=== PATIENT | female | born 1970 | race Hispanic/Latino ===

== ENCOUNTER 2023-10-16 16:26 | Emergency (ER) | payer SELFPAY ==
--- NOTE | 2023-10-16 17:13 | ER ---
Nurse's Notes [facility] Name: Zoie Zamarripa Age: 53 yrs Sex: Female : 1970 Arrival Date: 10/16/2023 Time: 16:26 Bed IW10 Private MD: Diagnosis: Essential (primary) hypertension Presentation: 10/15 16:43 Chief complaint: Patient states: Chest pain for about a week along with high blood nj pressure, states she was dx with HTN a long time ago, used to take medicine and stop taking it. Coronavirus screen: Vaccine status: Patient reports receiving the 2nd dose of the covid vaccine. Ebola Screen: Patient denies travel to an Ebola-affected area in the 21 days before illness onset. Initial Sepsis Screen: Does the patient meet any 2 criteria? No. Patient's initial sepsis screen is negative. Does the patient have a suspected source of infection? No. Patient's initial sepsis screen is negative. Risk Assessment: Do you want to hurt yourself or someone else? Patient reports no desire to harm self or others. Onset of symptoms was October 2023. 16:43 Method Of Arrival: Ambulatory [facility] 16:43 Acuity: PARKER 3 nj1 Triage Assessment: 16:45 General: Appears in no apparent distress. comfortable, Behavior is calm, cooperative, nj1 appropriate for age. Pain: Complains of pain in chest Pain currently is 5 out of 10 on a pain scale. Cardiovascular: Chest pain is described as mild, episodes are intermittent. Historical: - Allergies: 16:44 Hydrocodone-Acetaminophen; nj1 - PMHx: 16:44 Hypertensive disorder; nj1 - PSHx: 16:44 None; nj1 - Immunization history:: Client reports receiving the 2nd dose of the Covid vaccine. - Infectious Disease History:: Denies. - Social history:: Smoking status: Patient reports the use of cigarette tobacco products, smokes one-half pack cigarettes per day. - Family history:: not pertinent. - Hospitalizations: : No recent hospitalization is reported. Assessment: 17:01 Reassessment: Cancel all orders per Dr Valentine, pt to be sent home with prescription. [facility] Vital Signs: 16:43 BP 159 / 97; Pulse 76; Resp 17; Temp 98.7; Pulse Ox 99% on R/A; Weight 99.79 kg; Height nj1 5 ft. 3 in. ; Pain 5/10; 16:43 Body Mass Index 38.97 (99.79 kg, 160.02 cm) nj1 16:43 Pain Scale: Adult [facility] ED Course: 16:29 Patient arrived in ED. im 16:44 Triage completed. nj1 16:45 Arm band placed on right wrist. nj1 16:48 Mike Valentine MD is Attending Physician. rn 17:08 Provided Education on: discharge instructions. nj1 17:08 Patient did not have IV access during this emergency room visit. nj1 17:08 No provider procedures requiring assistance completed. nj1 Administered Medications: No medications were administered Medication: 17:08 VIS not applicable for this client. [facility] Outcome: 17:08 Discharged to home ambulatory, nj1 17:08 Condition: stable 17:08 Discharge instructions given to patient, Instructed on discharge instructions, follow up and referral plans. medication usage, Demonstrated understanding of instructions, follow-up care, medications, Prescriptions given X 1, 17:09 Patient left the ED. [facility] 17:12 Discharge ordered by . rn Signatures: Mike Valentine MD MD rn Jaco, Norma, RN RN [facility] Darlin Rushing Corrections: (The following items were deleted from the chart) 17:21 17:21 Patient [place] the ED. [place] [id number]
--- NOTE | 2023-10-16 17:13 | EDPHYS ---
Physician Documentation [facility] Name: Zoie Zamarripa Age: 53 yrs Sex: Female : 1970 Arrival Date: 10/16/2023 Time: 16:26 Bed IW10 Private MD: ED Physician Mike Valentine HPI: 10/15 17:03 This 53 yrs old Female presents to ER via Ambulatory with complaints of high rn blood pressure. 17:06 The patient has elevated blood pressure and discovered this at home. Onset: The rn symptoms/episode began/occurred at an unknown time. Modifying factors: The symptoms are aggravated by discontinuation of meds. Severity of symptoms: At its worst the blood pressure was mild, in the emergency department the blood pressure is unchanged. The patient has experienced similar episodes in the past. Patient reports out of blood pressure medications for some time. Patient reports mild headache and malaise. No chest pain or shortness of breath. No focal neurological deficit. Patient states used to feel like this all the time when her blood pressure was up and here for refill of blood pressure medication. No fever. No cough. No trauma. Denies abdominal pain or back pain.. Historical: - Allergies: 16:44 Hydrocodone-Acetaminophen; nj1 - PMHx: 16:44 Hypertensive disorder; nj1 - PSHx: 16:44 None; nj1 - Immunization history:: Client reports receiving the 2nd dose of the Covid vaccine. - Infectious Disease History:: Denies. - Social history:: Smoking status: Patient reports the use of cigarette tobacco products, smokes one-half pack cigarettes per day. - Family history:: not pertinent. - Hospitalizations: : No recent hospitalization is reported. ROS: 17:06 Constitutional: Negative for fever, chills, and weight loss, Eyes: Negative for injury, rn pain, redness, and discharge, Neck: Negative for injury, pain, and swelling, Cardiovascular: Negative for chest pain, palpitations, and edema, Respiratory: Negative for shortness of breath, cough, wheezing, and pleuritic chest pain, Abdomen/GI: Negative for abdominal pain, nausea, vomiting, diarrhea, and constipation, Back: Negative for injury and pain, MS/Extremity: Negative for injury and deformity, Skin: Negative for injury, rash, and discoloration, Neuro: Positive for mild headache, negative for weakness or numbness. Exam: 17:06 Constitutional: This is a well developed, well nourished patient who is awake, alert, rn and in no acute distress. Cardiovascular: Regular rate and rhythm. No pulse deficits. Respiratory: No increased work of breathing, no retractions or nasal flaring. Abdomen/GI: Soft, non-tender MS/ Extremity: Pulses equal, no cyanosis. Neuro: Awake and alert, GCS 15, oriented to person, place, time, and situation. Cranial nerves II-XII grossly intact. Motor strength 5/5 in all extremities. Sensory grossly intact. Cerebellar exam normal. Normal gait. Vital Signs: 16:43 BP 159 / 97; Pulse 76; Resp 17; Temp 98.7; Pulse Ox 99% on R/A; Weight 99.79 kg; Height nj1 5 ft. 3 in. ; Pain 5/10; 16:43 Body Mass Index 38.97 (99.79 kg, 160.02 cm) nj1 16:43 Pain Scale: Adult nj1 MDM: 16:48 Patient medically screened. rn 17:06 Differential diagnosis: Malignant HTN, Hypertension, asymptomatic hypertension. Data rn reviewed: vital signs, nurses notes, and as a result, I will discharge patient. Counseling: I had a detailed discussion with the patient and/or guardian regarding the historical points, exam findings, and any diagnostic results supporting the discharge/admit diagnosis, the need for outpatient follow up, to return to the emergency department if symptoms worsen or persist or if there are any questions or concerns that arise at home. ED course: Had long conversation with patient, told her safest thing to do would be to get some test to rule out any sort of end organ damage. Patient states seems waiting room is very busy and she feels like she just needs blood pressure medication, has felt this multiple times in the past and declines workup at this time. Understands risks of going home without workup. She states she prefers a refill of her lisinopril and will make an appointment with her PCP. Return precautions given and understood.. 10/15 16:51 Order name: Cardiac monitoring rn 10/15 16:51 Order name: EKG - Nurse/Tech rn 10/15 16:51 Order name: IV Saline Lock rn 10/15 16:51 Order name: Labs collected and sent rn 10/15 16:51 Order name: O2 Per Protocol rn 10/15 16:51 Order name: O2 Sat Monitoring rn Administered Medications: No medications were administered Disposition Summary: 10/16/23 17:12 Discharge Ordered Notes: Location: Home rn Problem: new rn Symptoms: have improved rn Condition: Stable rn Diagnosis - Essential (primary) hypertension rn Followup: rn - With: Private Physician - When: As needed - Reason: Recheck today's complaints, Re-evaluation by your physician Discharge Instructions: - Discharge Summary Sheet rn - Hypertension, Adult rn Forms: - Medication Reconciliation Form rn - Thank You Letter rn - Antibiotic rn advice - Prescription Opioid Use rn - Patient Portal Instructions rn - Leadership Thank You Letter rn Prescriptions: - Lisinopril 10 mg Oral tablet - take 1 tablet ORAL route once daily; 90 tablet; Refills: 0, Product Selection rn Permitted Signatures: Dispatcher [employer] EDMS Mike Valentine MD MD rn Jaco, Norma, RN RN nj1 Corrections: (The following items were deleted from the chart) 16:52 16:52 Chest Single View+RAD.RAD.BRZ ordered. EDMS EDMS 17:04 16:52 BASIC METABOLIC PANEL+C.LAB.BRZ ordered. EDMS EDMS 17:04 16:52 CBC+H.LAB.BRZ ordered. EDMS EDMS 17:04 16:52 HEPATIC FUNCTION+C.LAB.BRZ ordered. EDMS EDMS 17:04 16:52 PROBNP+C.LAB.BRZ ordered. EDMS EDMS 17:04 16:52 Troponin High Sensitivity+C.LAB.BRZ ordered. EDMS EDMS 17:07 17:06 Constitutional: Negative for fever, chills, and weight loss, Cardiovascular: rn Negative for chest pain, palpitations, and edema, Respiratory: Negative for shortness of breath, cough, wheezing, and pleuritic chest pain, Abdomen/GI: Negative for abdominal pain, nausea, vomiting, diarrhea, and constipation, Back: Negative for injury and pain, MS/Extremity: Negative for injury and deformity, Skin: Negative for injury, rash, and discoloration, Neuro: Positive for mild headache, negative for weakness or numbness. rn
[2023-10-16 19:46] VITALS: BP 159/97; TEMP 98.7; O2SAT 99
== END 2023-10-16 17:21 | disposition home or self-care (01) ==
LOC: ER 16:26
DX: I10 Essential (primary) hypertension (principal); F17.210 Nicotine dependence, cigarettes, uncomplicated; Z88.5 Allergy status to narcotic agent
CPT/HCPCS: 99283

== ENCOUNTER 2024-04-09 12:46 | Emergency (ER) | payer SELFPAY ==
--- NOTE | 2024-04-09 13:12 | EDPHYS ---
Physician Documentation [facility] Name: Zoie Zamarripa Age: 54 yrs Sex: Female : 1970 Arrival Date: 04/09/2024 Time: 12:46 Bed 18 Private MD: ED Physician Carl Kaba HPI: 04/09 13:08 This 54 yrs old Female presents to ER via Ambulatory with complaints of sp3 Toothache. 13:08 Patient with right-sided facial pain in the mandible consistent with prior toothache. sp3 Patient has an appointment with dentistry on Monday but states she cannot wait currently. She denies fever, throat swelling, shortness of breath, chest pain, rash or any other signs or symptoms on ROS at this time.. Historical: - Allergies: 13:03 Hydrocodone; hb - Home Meds: 13:03 None [Active]; hb - PMHx: 13:03 Hypertensive disorder; hb - PSHx: 13:03 section; hb - Immunization history:: Adult Immunizations up to date. - Infectious Disease History:: Denies. - Social history:: Smoking status: Patient denies any tobacco usage or history of. ROS: 13:09 Constitutional: Negative for fever, chills, and weight loss, Eyes: Negative for injury, sp3 pain, redness, and discharge, Neck: Negative for injury, pain, and swelling, Cardiovascular: Negative for chest pain, palpitations, and edema, Respiratory: Negative for shortness of breath, cough, wheezing, and pleuritic chest pain, Abdomen/GI: Negative for abdominal pain, nausea, vomiting, diarrhea, and constipation, Back: Negative for injury and pain, Neuro: Negative for headache, weakness, numbness, tingling, and seizure, Psych: Negative for depression, anxiety, suicide ideation, homicidal ideation, and hallucinations, Allergy/Immunology: Negative for hives, rash, and allergies, 13:09 All other systems are negative, Exam: 13:09 Constitutional: This is a well developed, well nourished patient who is awake, alert, sp3 and in no acute distress. Head/Face: Normocephalic, atraumatic. Neck: Trachea midline, no thyromegaly or masses palpated, and no cervical lymphadenopathy. Supple, full range of motion without nuchal rigidity, or vertebral point tenderness. No Meningismus. Chest/axilla: Normal chest wall appearance and motion. Nontender with no deformity. No lesions are appreciated. Cardiovascular: Regular rate and rhythm with a normal S1 and S2. No gallops, murmurs, or rubs. Normal PMI, no JVD. No pulse deficits. Respiratory: Lungs have equal breath sounds bilaterally, clear to auscultation and percussion. No rales, rhonchi or wheezes noted. No increased work of breathing, no retractions or nasal flaring. 13:09 ENT: Poor dentition on entire right side of mouth with gingival swelling. Probable infection present.. Vital Signs: 12:55 BP 156 / 86; Pulse 88; Resp 16; Temp 98.2(O); Pulse Ox 98% on R/A; Weight 99.79 kg; hb Height 5 ft. 3 in. ; Pain 10/10; 12:55 Body Mass Index 38.97 (99.79 kg, 160.02 cm) hb 12:55 Pain Scale: Adult hb MDM: 12:53 Patient medically screened. sp3 13:10 Data reviewed: vital signs, nurses notes. ED course: 54-year-old female with probable sp3 dental infection. Will place on antibiotic and NSAID and administer 1 dose Sayre in the ED. Clinically ruled out sepsis, shock or any other critical process.. Administered Medications: 13:32 Drug: HYDROcodone-acetaminophen PO 5 mg-325 mg 2 tabs PO once Route: PO; db 13:50 Follow up: Response: No adverse reaction db Disposition Summary: 04/09/24 13:11 Discharge Ordered Notes: Location: Home sp3 Condition: Stable sp3 Diagnosis - Dental infection sp3 Followup: sp3 - With: Private Physician - When: Upon discharge from the Emergency Department - Reason: Continuance of care Discharge Instructions: - Discharge Summary Sheet sp3 - Dental Pain sp3 Forms: - Medication Reconciliation Form sp3 - Antibiotic Education sp3 - Prescription Opioid Use sp3 - Patient Portal Instructions sp3 - Leadership Thank You Letter sp3 Prescriptions: - Augmentin 875-125 mg Oral Tablet - take 1 tablet ORAL route every 12 hours for 10 days; 20 tablet; Refills: 0, sp3 Product Selection Permitted - Diclofenac Sodium 75 mg Oral Tablet Sustained Release - take 1 tablet ORAL route 2 times per day; 30 tablet; Refills: 0, Product sp3 Selection Permitted Signatures: Dispatcher [employer] EDMS Ashlie Esposito, RN RN hb Carl Kaba MD MD sp3 Roberta Gore, RN RN db Corrections: (The following items were deleted from the chart) 12:54 12:54 Chest Single View+RAD.RAD.BRZ ordered. EDMS EDMS 13:00 12:54 IV Saline Lock ordered. sp3 hb 13:00 12:54 Labs collected and sent ordered. sp3 hb 13: 12:54 Cardiac monitoring ordered. sp3 hb 13:01 12:54 EKG - Nurse/Tech ordered. sp3 hb 13:01 12:54 Oxygen Per Protocol ordered. sp3 hb 13:01 12:54 O2 Sat Monitoring ordered. sp3 hb 13:03 13:03 Allergies: Hydrocodone-Acetaminophen; hb hb 13:04 12:54 PROTIME (+INR)+COAG.LAB.BRZ ordered. EDMS EDMS 13:05 12:54 BASIC METABOLIC PANEL+C.LAB.BRZ ordered. EDMS EDMS 13:05 12:54 CBC+H.LAB.BRZ ordered. EDMS EDMS 13:05 12:54 HEPATIC FUNCTION+C.LAB.BRZ ordered. EDMS EDMS 13:05 12:54 MAGNESIUM+C.LAB.BRZ ordered. EDMS EDMS 13:05 12:54 PROBNP+C.LAB.BRZ ordered. EDMS EDMS 13:05 12:54 Troponin High Sensitivity+C.LAB.BRZ ordered. EDMS EDMS 13:05 12:54 LACTATE+C.LAB.BRZ ordered. EDMS EDMS
--- NOTE | 2024-04-09 13:12 | ER ---
Nurse's Notes [facility] Name: Zoie Zamarripa Age: 54 yrs Sex: Female : 1970 Arrival Date: 04/09/2024 Time: 12:46 Bed 18 Private MD: Diagnosis: Dental infection Presentation: 04/09 12:55 Chief complaint: Right lower molar pain x 2 weeks. Coronavirus screen: At this time, hb the client does not indicate any symptoms associated with coronavirus-19. Ebola Screen: No symptoms or risks identified at this time. Initial Sepsis Screen: Does the patient meet any 2 criteria? No. Patient's initial sepsis screen is negative. Does the patient have a suspected source of infection? No. Patient's initial sepsis screen is negative. Risk Assessment: Do you want to hurt yourself or someone else? Patient reports no desire to harm self or others. Onset of symptoms was March 26, 2024. 12:55 Method Of Arrival: Ambulatory hb 12:55 Acuity: PARKER 4 hb Triage Assessment: 14:30 General: Appears. db Historical: - Allergies: 13:03 Hydrocodone; hb - Home Meds: 13:03 None [Active]; hb - PMHx: 13:03 Hypertensive disorder; hb - PSHx: 13:03 section; hb - Immunization history:: Adult Immunizations up to date. - Infectious Disease History:: Denies. - Social history:: Smoking status: Patient denies any tobacco usage or history of. Screenin:45 [facility] ED Fall Risk Assessment (Adult) History of falling in the last 3 months, db including since admission No falls in past 3 months (0 pts) Confusion or Disorientation No (0 pts) Intoxicated or Sedated No (0 pts) Impaired Gait No (0 pts) Mobility Assist Device Used No (0 pt) Altered Elimination No (0 pt) Score/Fall Risk Level 0 - 2 = Low Risk Oriented to surroundings, Maintained a safe environment. Abuse screen: Denies threats or abuse. Nutritional screening: No deficits noted. On. Nutritional screening: No deficits noted. Tuberculosis screening: No symptoms or risk factors identified. Assessment: 13:15 Reassessment: Patient appears in no apparent distress at this time. Patient and/or db family updated on plan of care and expected duration. Pain level reassessed. Patient is alert, oriented x 3, equal unlabored respirations, skin warm/dry/pink. General: Appears in no apparent distress. comfortable, Behavior is calm, cooperative. Pain: Complains of pain in mouth. Neuro: Level of Consciousness is awake, alert, obeys commands, Oriented to person, place, time, situation. EENT: DENTAL PAIN. Vital Signs: 12:55 BP 156 / 86; Pulse 88; Resp 16; Temp 98.2(O); Pulse Ox 98% on R/A; Weight 99.79 kg; hb Height 5 ft. 3 in. ; Pain 10/10; 12:55 Body Mass Index 38.97 (99.79 kg, 160.02 cm) hb 12:55 Pain Scale: Adult hb ED Course: 12:49 Patient arrived in ED. mg5 12:50 Carl Kaba MD is Attending Physician. sp3 13:03 Triage completed. hb 13:03 Arm band placed on. hb 13:22 Roberta Gore, RN is Primary Nurse. db 13:45 Patient has correct armband on for positive identification. Bed in low position. Call db light in reach. Side rails up X 1. Provided Education on: DISCHARGE AND FOLLOWUP. Pulse ox on. NIBP on. Pillow given. 13:45 No provider procedures requiring assistance completed. Patient did not have IV access db during this emergency room visit. Administered Medications: 13:32 Drug: HYDROcodone-acetaminophen PO 5 mg-325 mg 2 tabs PO once Route: PO; db 13:50 Follow up: Response: No adverse reaction db Medication: 13:15 VIS not applicable for this client. db Outcome: 13:11 Discharge ordered by . sp3 13:45 Discharged to home ambulatory, db 13:45 Condition: stable 13:45 Discharge instructions given to patient, Instructed on discharge instructions, follow up and referral plans. Prescriptions given X 2, 13:51 Patient left the ED. db Signatures: Ashlie Esposito RN RN Carl Kaba MD MD sp3 Roberta Gore RN RN Apurva Aldrich mg5 Corrections: (The following items were deleted from the chart) 13:03 13:03 Allergies: Hydrocodone-Acetaminophen; hb
[2024-04-09] MEDS ORDERED: HYDROCODONE/APAP 5/325 MG TAB ONE ×2 (13:41→13:45)
[2024-04-09 13:55] VITALS: BP 156/86; TEMP 98.2; O2SAT 98
== END 2024-04-09 13:51 | disposition home or self-care (01) ==
LOC: ER 12:46
DX: K04.7 Periapical abscess without sinus (principal)
CPT/HCPCS: 99283

== ENCOUNTER 2024-07-04 12:58 | Emergency (ER) | payer OTHER ==
[2024-07-04 14:15] LABS: SARS-CoV-2 Antigen CONTROL BLUE LINE VIS/BG OK; SARS-CoV-2 Antigen Rapid Res Negative (Negative)
--- NOTE | 2024-07-04 14:25 | RAD REPORT ---
EXAMINATION: ONE VIEW CHEST XR CLINICAL INDICATION: COUGH TECHNIQUE: Frontal chest projection is submitted. Examination is limited by patient positioning and t echnique. COMPARISON: 06/19/2015 FINDINGS: The lungs are well inflated and clear. The heart is normal in size. No displaced fractures identified . IMPRESSION: No acute intrathoracic abnormalities.
--- NOTE | 2024-07-04 14:40 | ER ---
Nurse's Notes [facility] Name: Zoie Zamarripa Age: 54 yrs Sex: Female : 1970 Arrival Date: 07/04/2024 Time: 12:58 Bed 11 Private MD: Diagnosis: Influenza due to identified novel influenza A virus Presentation: 07/04 13:03 Chief complaint: Patient states: has difficulty breathing, headaches cough, sneezing, iw watery eyes since Monday. Coronavirus screen: Client presents with at least one sign or symptom that may indicate coronavirus-19. Ebola Screen: No symptoms or risks identified at this time. Initial Sepsis Screen: Does the patient meet any 2 criteria? No. Patient's initial sepsis screen is negative. Does the patient have a suspected source of infection?. Risk Assessment: Do you want to hurt yourself or someone else? Patient reports no desire to harm self or others. Onset of symptoms was July 01, 2024. 13:03 Method Of Arrival: Ambulatory iw 13:03 Acuity: PARKER 4 iw Triage Assessment: 15:06 General: Appears in no apparent distress. Respiratory: Onset: The symptoms/episode iw began/occurred yesterday, the patient has mild shortness of breath. 15:07 Respiratory: Reports. db Historical: - Allergies: 13:04 No Known Allergies; iw - PMHx: 13:04 Hypertensive disorder; Asthma; iw - PSHx: 13:04 section; iw - Immunization history:: Adult Immunizations not up to date. - Infectious Disease History:: Denies. - Social history:: Smoking status: Patient reports the use of cigarette tobacco products, smokes one-half pack cigarettes per day. Screenin:06 [facility] ED Fall Risk Assessment (Adult) History of falling in the last 3 months, db including since admission No falls in past 3 months (0 pts) Confusion or Disorientation No (0 pts) Intoxicated or Sedated No (0 pts) Impaired Gait No (0 pts) Mobility Assist Device Used No (0 pt) Altered Elimination No (0 pt) Score/Fall Risk Level 0 - 2 = Low Risk Oriented to surroundings, Maintained a safe environment. Abuse screen: Denies threats or abuse. Denies injuries from another. Nutritional screening: No deficits noted. Tuberculosis screening: No symptoms or risk factors identified. Assessment: 15:06 Reassessment: Patient appears in no apparent distress at this time. Patient and/or db family updated on plan of care and expected duration. Pain level reassessed. Patient is alert, oriented x 3, equal unlabored respirations, skin warm/dry/pink. General: Appears in no apparent distress. comfortable, Behavior is calm, cooperative. Pain: Denies pain. Neuro: Level of Consciousness is awake, alert, obeys commands, Oriented to person, place, time, situation. Cardiovascular: Rhythm is regular. Respiratory: Airway is patent Respiratory effort is even, unlabored, Respiratory pattern is regular, symmetrical, Breath sounds are clear. Vital Signs: 13:03 BP 146 / 102; Pulse 88; Resp 19; Temp 98.6; Pulse Ox 97% on R/A; Weight 99.79 kg; iw Height 5 ft. 3 in. ; Pain 9/10; 13:03 Body Mass Index 38.97 (99.79 kg, 160.02 cm) iw 13:03 Pain Scale: Adult iw ED Course: 13:00 Patient arrived in ED. mr 13:02 Kulwinder Ndiaye MD is Attending Physician. ec2 13:04 Triage completed. iw 13:05 Arm band placed on. iw 14:02 CXR XRAY In Process Unspecified. EDMS 14:34 Giovana Barnes, RN is Primary Nurse. iw 15:06 Patient has correct armband on for positive identification. Bed in low position. Call db light in reach. Side rails up X 1. Provided Education on: DISCHARGE AND FOLLOWUP. Pillow given. 15:06 No provider procedures requiring assistance completed. Patient did not have IV access db during this emergency room visit. Administered Medications: 14:40 CANCELLED (Physician Discretion): DuoNeb Nebulize (3:1) (2.5 mg - 0.5 mg) 3 ml ec2 Nebulizer once 14:57 Drug: Tessalon Perle PO 200 mg PO once Route: PO; db 15:08 Follow up: Response: No adverse reaction db 14:58 Drug: Ketorolac IM 30 mg IM once Route: IM; Site: right deltoid; db 15:08 Follow up: Response: No adverse reaction db 14:58 Drug: Oseltamivir PO 75 mg PO once Route: PO; db 15:08 Follow up: Response: No adverse reaction db Medication: 15:06 VIS not applicable for this client. db Outcome: 14:39 Discharge ordered by . ec2 15:06 Discharged to home ambulatory, with family, db 15:06 Condition: stable 15:06 Discharge instructions given to patient, Instructed on discharge instructions, follow up and referral plans. Prescriptions given X 2, 15:08 Patient left the ED. db Signatures: Dispatcher [employer] EDND Alice Simmons, Reg Reg mr Giovana Barnes RN RN iw Roberta Gore RN RN db Kulwinder Ndiaye MD MD ec2 Corrections: (The following items were deleted from the chart) 13:05 13:04 Allergies: HYDROCODONE; iw gilma
--- NOTE | 2024-07-04 14:40 | EDPHYS ---
Physician Documentation [facility] Name: Zoie Zamarripa Age: 54 yrs Sex: Female : 1970 Arrival Date: 07/04/2024 Time: 12:58 Bed 11 Private MD: ED Physician Kulwinder Ndiaye HPI: 07/04 14:39 This 54 yrs old Female presents to ER via Ambulatory with complaints of ec2 Breathing Difficulty. 14:44 Arrives for cough and cold symptoms. Some nausea, decreased p.o. intake and fatigue.. ec2 Historical: - Allergies: 13:04 No Known Allergies; iw - PMHx: 13:04 Hypertensive disorder; Asthma; iw - PSHx: 13:04 section; iw - Immunization history:: Adult Immunizations not up to date. - Infectious Disease History:: Denies. - Social history:: Smoking status: Patient reports the use of cigarette tobacco products, smokes one-half pack cigarettes per day. ROS: 14:44 Constitutional: as per hpi ec2 Exam: 14:45 Constitutional: GEN: NAD Head: atraumatic Eyes: EOMI Ears: External ears are ec2 normal. CV: regular rate LUNGS: no respiratory distress, occasional scattered wheeze. ABD: non-distended SKIN: no evidence of rashes MSK: no evidence of trauma Vital Signs: 13:03 BP 146 / 102; Pulse 88; Resp 19; Temp 98.6; Pulse Ox 97% on R/A; Weight 99.79 kg; iw Height 5 ft. 3 in. ; Pain 9/10; 13:03 Body Mass Index 38.97 (99.79 kg, 160.02 cm) iw 13:03 Pain Scale: Adult iw MDM: 13:06 Medical Screening Exam initiated ec2 14:45 Data reviewed: vital signs, nurses notes. ED course: Patient arrives today for URI ec2 symptoms. Patient is positive for flu. Chest x-ray obtained, independently reviewed and interpreted by me, shows no focal pneumonia. Will discharge home with Tamiflu and albuterol inhaler. Return precautions given.. 07/04 13:05 Order name: Influenza Screen (a \T\ B); Complete Time: 14:39 ec2 07/04 13:05 Order name: SARS RAPID; Complete Time: 14:33 ec2 07/04 13:05 Order name: CXR XRAY; Complete Time: 14:33 ec2 Administered Medications: 14:40 CANCELLED (Physician Discretion): DuoNeb Nebulize (3:1) (2.5 mg - 0.5 mg) 3 ml ec2 Nebulizer once 14:57 Drug: Tessalon Perle PO 200 mg PO once Route: PO; db 15:08 Follow up: Response: No adverse reaction db 14:58 Drug: Ketorolac IM 30 mg IM once Route: IM; Site: right deltoid; db 15:08 Follow up: Response: No adverse reaction db 14:58 Drug: Oseltamivir PO 75 mg PO once Route: PO; db 15:08 Follow up: Response: No adverse reaction db Disposition Summary: 07/04/24 14:39 Discharge Ordered Notes: Location: Home ec2 Condition: Stable ec2 Diagnosis - Influenza due to identified novel influenza A virus ec2 Followup: ec2 - With: Private Physician - When: - Reason: Re-evaluation by your physician Discharge Instructions: - Discharge Summary Sheet ec2 - Influenza, Adult ec2 Forms: - Medication Reconciliation Form ec2 - Antibiotic Education ec2 - Prescription Opioid Use ec2 - Patient Portal Instructions ec2 - Leadership Thank You Letter ec2 Prescriptions: - albuterol sulfate 90 mcg/actuation Inhalation HFA Aerosol Inhaler - inhale 2 inhalation INHALATION route every 2 to 6 hours as needed for ec2 bronchospasm; administer via ventilator; 1 unit; Refills: 0, Product Selection Permitted - Tamiflu 75 mg Oral capsule - take 1 tablet ORAL route every 12 hours for 5 days; 10 tablet; Refills: 0, ec2 Product Selection Permitted Signatures: Dispatcher [employer] Giovana Patel RN RN iw Roberta Gore RN RN Kulwinder Altman MD MD ec2 Corrections: (The following items were deleted from the chart) 13:05 13:04 Allergies: HYDROCODONE; iw 14:40 13:08 DuoNeb Nebulize (3:1) (2.5 mg - 0.5 mg) 3 ml Nebulizer once ordered. ec2 ec2
[2024-07-04] MEDS ORDERED: KETOROLAC 30 MG/ML INJ ONE (14:58)
[2024-07-04] MEDS ORDERED: OSELTAMIVIR 75 MG CAP PO ONE (14:58)
[2024-07-04] MEDS ORDERED: BENZONATATE 100 MG CAP PO ONE (14:59)
[2024-07-04 15:25] VITALS: BP 146/102; TEMP 98.6; O2SAT 97
== END 2024-07-04 15:08 | disposition home or self-care (01) ==
LOC: ER 12:58
DX: J09.X2 Influenza due to identified novel influenza A virus with other respiratory manifestations (principal); J45.909 Unspecified asthma, uncomplicated; I10 Essential (primary) hypertension; F17.210 Nicotine dependence, cigarettes, uncomplicated; Z11.52 Encounter for screening for COVID-19
CPT/HCPCS: 36415; 71045; 87804; 87811; 96372; 99284

== ENCOUNTER 2024-09-25 09:23 | Emergency (ER) | payer OTHER ==
--- NOTE | 2024-09-25 09:37 | ER ---
Nurse's Notes [facility] Name: Zoie Zamarripa Age: 54 yrs Sex: Female : 1970 Arrival Date: 09/25/2024 Time: 09:23 Bed 13 Private MD: Diagnosis: Mid Back Pain Presentation: 09/25 09:35 Chief complaint: Patient states: she bent over this morning to pick something up, and ap3 coughed at the same time. patient is complaining of mid back pain of which she rates a 9/10 on the pain scale. Coronavirus screen: At this time, the client does not indicate any symptoms associated with coronavirus-19. Ebola Screen: No symptoms or risks identified at this time. Initial Sepsis Screen: Does the patient meet any 2 criteria? No. Patient's initial sepsis screen is negative. Does the patient have a suspected source of infection? No. Patient's initial sepsis screen is negative. Risk Assessment: Do you want to hurt yourself or someone else? Patient reports no desire to harm self or others. Onset of symptoms was September 25, 2024. 09:35 Method Of Arrival: Ambulatory ap3 09:35 Acuity: PARKER 4 ap3 Triage Assessment: 09:37 General: Appears uncomfortable, Behavior is calm, cooperative, appropriate for age. ap3 Pain: Complains of pain in mid back area Pain currently is 9 out of 10 on a pain scale. Neuro: Level of Consciousness is awake, alert, obeys commands, Oriented to person, place, time, situation. Cardiovascular: Patient's skin is warm and dry. Respiratory: Airway is patent Respiratory effort is even, unlabored, Respiratory pattern is regular, symmetrical. 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 - Infectious Disease History:: Denies. - Social history:: Smoking status: Patient reports the use of cigarette tobacco products, smokes one-half pack cigarettes per day. Screenin:37 [facility] ED Fall Risk Assessment (Adult) History of falling in the last 3 months, ap3 including since admission No falls in past 3 months (0 pts) Confusion or Disorientation No (0 pts) Intoxicated or Sedated No (0 pts) Impaired Gait No (0 pts) Mobility Assist Device Used No (0 pt) Altered Elimination No (0 pt) Score/Fall Risk Level 0 - 2 = Low Risk Oriented to surroundings, Maintained a safe environment, Educated pt \T\ family on fall prevention, incl call for assistance when getting out of bed, Assessed \T\ reinforced patient's understanding of fall precautions, Hourly rounding (assess needs \T\ fall precautionary measures) done, Used ambulatory aids as needed (educated on \T\ assisted with). Abuse screen: Denies threats or abuse. Nutritional screening: No deficits noted. Tuberculosis screening: No symptoms or risk factors identified. Vital Signs: 09:35 BP 185 / 116; Pulse 80; Resp 17; Temp 98.2; Pulse Ox 98% ; Weight 99.79 kg; Height 5 ap3 ft. 3 in. ; Pain 9/10; 10:34 BP 163 / 110; Pulse 71; Resp 18; Pulse Ox 100% on R/A; ap3 09:35 Body Mass Index 38.97 (99.79 kg, 160.02 cm) ap3 09:35 Pain Scale: Adult ap3 ED Course: 09:26 Patient arrived in ED. im 09:28 Kulwinder Ndiaye MD is Attending Physician. ec2 09:35 Nimisha Keith, YARON is Primary Nurse. ap3 09:36 Triage completed. ap3 09:38 Arm band placed on right wrist. ap3 09:38 Patient has correct armband on for positive identification. Bed in low position. Call ap3 light in reach. Side rails up X 1. 10:35 Provided Education on: discharge instruction. ap3 10:35 No provider procedures requiring assistance completed. Patient did not have IV access ap3 during this emergency room visit. Administered Medications: 09:53 Drug: Lidoderm Topical Patch 5 % (700 mg/patch) 1 patches Topical once; leave on for 12 ap3 hours; cover most painful area; may cut into smaller pieces Route: Topical; Site: affected area; 10:35 Follow up: Response: No adverse reaction; Pain is decreased ap3 09:53 Drug: Methocarbamol PO 750 mg PO once Route: PO; ap3 10:35 Follow up: Response: No adverse reaction; Pain is decreased ap3 09:53 Drug: Ketorolac IM 30 mg IM once Route: IM; Site: right deltoid; ap3 10:35 Follow up: Response: No adverse reaction ap3 09:53 Drug: Acetaminophen PO 1000 mg PO once Route: PO; ap3 10:35 Follow up: Response: No adverse reaction; Pain is decreased ap3 Medication: 10:35 VIS not applicable for this client. ap3 Outcome: 09:37 Discharge ordered by . ec2 10:35 Discharged to home ambulatory, ap3 10:35 Condition: good 10:35 Discharge instructions given to patient, Instructed on discharge instructions, follow up and referral plans. medication usage, Demonstrated understanding of instructions, follow-up care, medications, Prescriptions given X 1, 10:36 Patient left the ED. ap3 Signatures: Nimisha Keith RN RN ap3 Darlin Rushing Edwin, MD MD ec2
--- NOTE | 2024-09-25 09:37 | EDPHYS ---
Physician Documentation [facility] Name: Zoie Zamarripa Age: 54 yrs Sex: Female : 1970 Arrival Date: 09/25/2024 Time: 09:23 Bed 13 Private MD: ED Physician Kulwinder Ndiaye HPI: 09/25 09:35 This 54 yrs old Female presents to ER via Unassigned with complaints of Back ec2 Injury - Middle back. 09:35 Patient arrives today for evaluation of mid back pain. Patient reports that she was ec2 bending over subsequently felt a strain in her back. Patient complaining of pain with movement and ambulation. Patient reports no falls injuries or trauma. Reports she has not taken any medications, injury occurred just prior to arrival.. 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 - Infectious Disease History:: Denies. - Social history:: Smoking status: Patient reports the use of cigarette tobacco products, smokes one-half pack cigarettes per day. ROS: 09:35 Constitutional: as per hpi ec2 Exam: 09:35 Constitutional: GEN: NAD Head: atraumatic Eyes: EOMI Ears: External ears are ec2 normal. CV: regular rate LUNGS: no respiratory distress ABD: non-distended SKIN: no evidence of rashes MSK: no evidence of trauma, no C/T/L-spine TTP or deformities noted, good range of motion of the bilateral lower extremities, negative straight leg raise test. Reproducible TTP to the paraspinal region of the bilateral mid back Vital Signs: 09:35 BP 185 / 116; Pulse 80; Resp 17; Temp 98.2; Pulse Ox 98% ; Weight 99.79 kg; Height 5 ap3 ft. 3 in. ; Pain 9/10; 10:34 BP 163 / 110; Pulse 71; Resp 18; Pulse Ox 100% on R/A; ap3 09:35 Body Mass Index 38.97 (99.79 kg, 160.02 cm) ap3 09:35 Pain Scale: Adult ap3 MDM: 09:36 Data reviewed: vital signs, nurses notes. ED course: Patient arrives today for mid back ec2 pain. Examination yields MSK findings as above. Will treat the patient for musculoskeletal pain, suspect muscle strain, doubt fracture given lack of mechanism, doubt spinal cord injury given lack of red flag symptoms. Accordingly we will forego advanced imaging such as CT of the lower back or MRI of the mid or low back. Will discharge home with prescription for pain medications have her follow-up with PCP. Return precautions given. Patient also with a history of hypertension, has not been taking hypertensive medication instructed to follow-up with PCP for this.. 09:37 Medical Screening Exam initiated ec2 Administered Medications: 09:53 Drug: Lidoderm Topical Patch 5 % (700 mg/patch) 1 patches Topical once; leave on for 12 ap3 hours; cover most painful area; may cut into smaller pieces Route: Topical; Site: affected area; 10:35 Follow up: Response: No adverse reaction; Pain is decreased ap3 09:53 Drug: Methocarbamol PO 750 mg PO once Route: PO; ap3 10:35 Follow up: Response: No adverse reaction; Pain is decreased ap3 09:53 Drug: Ketorolac IM 30 mg IM once Route: IM; Site: right deltoid; ap3 10:35 Follow up: Response: No adverse reaction ap3 09:53 Drug: Acetaminophen PO 1000 mg PO once Route: PO; ap3 10:35 Follow up: Response: No adverse reaction; Pain is decreased ap3 Disposition Summary: 09/25/24 09:37 Discharge Ordered Condition: Stable ec2 Diagnosis - Mid Back Pain ec2 Followup: ec2 - With: Private Physician - When: - Reason: Re-evaluation by your physician Discharge Instructions: - Discharge Summary Sheet ec2 - Acute Back Pain, Adult ec2 Forms: - Medication Reconciliation Form ec2 - Antibiotic Education ec2 - Prescription Opioid Use ec2 - Patient Portal Instructions ec2 - Leadership Thank You Letter ec2 Prescriptions: - Cyclobenzaprine 10 mg Oral Tablet - take 1 tablet ORAL route every 8 hours As needed; 30 tablet; Refills: 0, ec2 Product Selection Permitted Signatures: Nimisha Keith RN RN ap3 Kulwinder Ndiaye MD MD ec2
[2024-09-25] MEDS ORDERED: ACETAMINOPHEN 500 MG TAB ONE (09:44)
[2024-09-25] MEDS ORDERED: methocarbamoL 750 MG TAB ONE (09:44)
[2024-09-25] MEDS ORDERED: KETOROLAC 30 MG/ML INJ ONE (09:44)
[2024-09-25] MEDS ORDERED: LIDOCAINE 4% PATCH ONE (09:45)
[2024-09-25 10:45] VITALS: TEMP 98.2
[2024-09-25 10:49] VITALS: BP 163/110; O2SAT 100
== END 2024-09-25 10:36 | disposition home or self-care (01) ==
LOC: ER 09:23
DX: M54.9 Dorsalgia, unspecified (principal); F17.210 Nicotine dependence, cigarettes, uncomplicated
CPT/HCPCS: J2003

== ENCOUNTER 2024-11-10 16:19 | Emergency (ER) | payer OTHER ==
--- NOTE | 2024-11-10 16:57 | RAD REPORT ---
EXAMINATION: ONE VIEW CHEST XR CLINICAL INDICATION: CHEST PAIN TECHNIQUE: Frontal chest projection is submitted. Examination is limited by patient positioning and t echnique. COMPARISON: 07/04/2024 FINDINGS: Nonspecific peribronchial thickening without focal consolidation could represent a viral or inflammat ory process. The heart is upper limit of normal in size. No displaced fractures identified. IMPRESSION: Interstitial pattern bilaterally could be related to viral infection or reactive airway disease.
[2024-11-10] MEDS ORDERED: KETOROLAC 30 MG/ML INJ ONE (17:23)
[2024-11-10] MEDS ORDERED: NA CHLORIDE 0.9% 1,000 ML ONE (17:23)
[2024-11-10] MEDS ORDERED: ONDANSETRON 4 MG/2 ML VIAL ONE (17:23)
[2024-11-10 17:28] LABS: Absolute Eosinophils 0.2 K/uL (0-0.5); Absolute Lymphocytes (CBC) 2.6 K/uL (0.7-4.9); Absolute Monocytes 0.5 K/uL (0.1-1.3); Absolute Neutrophil 3.2 K/uL (1.8-8.0); Basophils % 0.6 % (0-1.3); Eosinophils % 3.5 % (0-4.4); Hematocrit 38.8 % (36.0-45.0); Hemoglobin 13.4 g/dL (12.0-15.0); Lymphocytes % 39.7 % (15.3-44.8); MCH 33.6 pg (27.0-35.0); MCHC 34.5 g/dL (32.0-36.0); MCV 97.2 fL (80-100); MPV 9.7 fL (7.6-11.3); Monocytes % 7.9 % (3.3-12.3); Neutrophils % 48.3 % (41.7-73.7); Nucleated Red Blood Cells % 0.1 % (0-0); Platelets 203 thou/uL (152-406); RBC Red Blood Cell Count 3.99 M/uL (3.86-4.86); Red Cell Distribution Width 13.9 % (12.1-15.2)
[2024-11-10 17:52] LABS: Albumin 3.6 g/dL (3.4-5.0); Albumin/Globulin Ratio 1.1 (1.1-1.8); Anion Gap 7.6 mEq/L (5.0-15.0); Bilirubin Total 0.3 mg/dL (0.2-1.0); Globulin 3.4 g/dL (2.3-3.5); Potassium 3.6 mEq/L (3.5-5.1); Troponin High Sensitivity 6.3 pg/mL (<58.9)
--- NOTE | 2024-11-10 18:39 | ER ---
Nurse's Notes [facility] Name: Zoie Zamarripa Age: 54 yrs Sex: Female : 1970 Arrival Date: 11/10/2024 Time: 16:19 Bed 20 Private MD: Diagnosis: Nausea with vomiting, unspecified;Cough Presentation: 11/10 16:28 Chief complaint: Patient states: chills, headaches, cough, chest pain, and N/V/D x 2 aa5 days ago. Coronavirus screen: chills, cough unrelated to allergies, diarrhea, nausea, vomiting. Ebola Screen: Patient denies travel to an Ebola-affected area in the 21 days before illness onset. Initial Sepsis Screen: Does the patient meet any 2 criteria? No. Patient's initial sepsis screen is negative. Does the patient have a suspected source of infection? No. Patient's initial sepsis screen is negative. Risk Assessment: Do you want to hurt yourself or someone else? Patient reports no desire to harm self or others. Onset of symptoms was October 2024. 16:28 Method Of Arrival: Ambulatory aa5 16:28 Acuity: PARKER 3 aa5 Historical: - Allergies: 16:28 No Known Allergies; aa5 - PMHx: 16:28 Anxiety; Asthma; depressive disorder; Hypertensive disorder; aa5 - PSHx: 16:28 section; aa5 - Immunization history:: Adult Immunizations unknown. - Infectious Disease History:: Denies. - Social history:: Smoking status: Patient reports the use of cigarette tobacco products. Screenin:17 [facility] ED Fall Risk Assessment (Adult) History of falling in the last 3 months, dd2 including since admission No falls in past 3 months (0 pts) Confusion or Disorientation No (0 pts) Intoxicated or Sedated No (0 pts) Impaired Gait No (0 pts) Mobility Assist Device Used No (0 pt) Altered Elimination No (0 pt) Score/Fall Risk Level 0 - 2 = Low Risk Oriented to surroundings, Maintained a safe environment, Educated pt \T\ family on fall prevention, incl call for assistance when getting out of bed, Assessed \T\ reinforced patient's understanding of fall precautions, Hourly rounding (assess needs \T\ fall precautionary measures) done. Abuse screen: Denies threats or abuse. Denies injuries from another. Nutritional screening: No deficits noted. Tuberculosis screening: No symptoms or risk factors identified. Assessment: 17:25 General: Appears in no apparent distress. Behavior is calm, cooperative, appropriate dd2 for age. Pain: Complains of pain in chest, GENERALIZED BODYACHES Pain does not radiate. Pain currently is 6 out of 10 on a pain scale. Aggravated by COUGHING. Neuro: No deficits noted. Level of Consciousness is awake, alert, obeys commands, Oriented to person, place, time, situation, Appropriate for age. Cardiovascular: Reports chest pain, Heart tones S1 S2 Patient's skin is warm and dry. Rhythm is sinus rhythm. Respiratory: Reports cough that is productive, pain with cough Airway is patent Respiratory effort is even, unlabored, Respiratory pattern is regular, symmetrical, Breath sounds are clear bilaterally. GI: Abdomen is non-distended, obese, Abd is soft and non tender X 4 quads. Reports nausea, vomiting. : No deficits noted. No signs and/or symptoms were reported regarding the genitourinary system. EENT: Reports nasal congestion. Derm: No deficits noted. No signs and/or symptoms reported regarding the dermatologic system. Musculoskeletal: No deficits noted. No signs and/or symptoms reported regarding the musculoskeletal system. Circulation, motion, and sensation intact. Range of motion: intact in all extremities. 19:39 Reassessment: Patient appears in no apparent distress at this time. Patient and/or jb4 family updated on plan of care and expected duration. Pain level reassessed. Patient is alert, oriented x 3, equal unlabored respirations, skin warm/dry/pink. Vital Signs: 16:28 BP 176 / 101; Pulse 77; Resp 18 S; Temp 98.3(O); Pulse Ox 97% on R/A; Weight 99.79 kg aa5 (R); Height 5 ft. 3 in. ; Pain 10/10; 17:25 BP 156 / 91; Pulse 64; Resp 17; Pulse Ox 97% on R/A; dd2 16:28 Body Mass Index 38.97 (99.79 kg, 160.02 cm) aa5 16:28 Pain Scale: Adult aa5 [place] Coma Score: 17:25 Eye Response: spontaneous(4). Motor Response: obeys commands(6). Verbal Response: dd2 oriented(5). Total: 15. ED Course: 16:22 Patient arrived in ED. mr 16:23 Caterina Manzo FNP-C is PHCP. kb 16:23 Mike Valentine MD is Attending Physician. kb 16:28 Arm band placed on. aa5 16:29 Triage completed. aa5 16:42 XRAY Chest (1 view) In Process Unspecified. EDMS 16:58 ZOIE CONTRERAS, RN is Primary Nurse. dd2 17:26 CBC with Diff Sent. dd2 17:26 CMP Sent. dd2 17:26 Lipase Sent. dd2 17:27 No provider procedures requiring assistance completed. Initial lab(s) drawn, by ma, dd2 sent to lab. EKG done, by ED staff, reviewed by Caterina PEACE. Inserted saline lock: 20 gauge in right antecubital area, using aseptic technique. Blood collected. Flushed with 10 mL NS. Patient maintains SpO2 saturation greater than 95% on room air. 17:30 Troponin HS Sent. dd2 17:32 Patient has correct armband on for positive identification. Bed in low position. Call dd2 light in reach. Side rails up X 1. Client placed on continuous cardiac and pulse oximetry monitoring. NIBP monitoring applied. desk monitor on. Door closed. Noise minimized. Warm blanket given. Pillow given. Verbal reassurance given. 17:51 PHCP role handed off by Caterina Manzo FNP-C kb 17:51 Josafat Simms PA is PHCP. kb 19:39 Provided Education on: discharge instructions.. jb4 19:39 IV discontinued, intact, bleeding controlled, No redness/swelling at site. Pressure jb4 dressing applied. Administered Medications: 17:30 Drug: TORadol - Ketorolac IVP 15 mg IVP once Route: IVP; Site: right antecubital; dd2 17:30 Drug: Ondansetron IVP 4 mg IVP once; over 2 minutes Route: IVP; Site: right antecubital;dd2 17:30 Drug: NS 0.9% IV 1000 ml IV at 1 bolus Per protocol; to be given as a bolus over 60 dd2 minutes Route: IV; Rate: 1 bolus; Site: right antecubital; Medication: 17:27 VIS not applicable for this client. dd2 Outcome: 18:38 Discharge ordered by . cp 19:39 Discharged to home ambulatory, jb4 19:39 Condition: stable 19:39 Discharge instructions given to patient, Instructed on discharge instructions, follow up and referral plans. medication usage, Demonstrated understanding of instructions, follow-up care, medications, Prescriptions given X 2, 19:40 Patient left the ED. jb4 Signatures: Dispatcher [employer] EDMS Caterina Manzo, WAREHOUSE SUPERVISOR-C WAREHOUSE SUPERVISOR-Ckb Simmons Alice, Reg Reg mr Sara Minor, RN RN aa5 Josafat Simms PA PA Shankar Nunez RN RN jb4 ZOIE CONTRERAS RN RN dd2 Corrections: (The following items were deleted from the chart) 16:28 16:28 Allergies: Aspirin; aa5 aa5
--- NOTE | 2024-11-10 18:39 | EDPHYS ---
Physician Documentation [facility] Name: Zoie Zamarripa Age: 54 yrs Sex: Female : 1970 Arrival Date: 11/10/2024 Time: 16:19 Bed 20 Private MD: ED Physician Mike Valentine HPI: 11/10 16:28 This 54 yrs old Female presents to ER via Unassigned with complaints of Cough, kb Vomiting. 16:28 Patient is a 54-year-old female who presents for cough, chest pain, chills, headache, kb nausea, vomiting, diarrhea that started 2 days ago. Denies fever. States her blood pressure medication was recently increased so she does not know if that has something to do with it.. Historical: - Allergies: 16:28 No Known Allergies; aa5 - PMHx: 16:28 Anxiety; Asthma; depressive disorder; Hypertensive disorder; aa5 - PSHx: 16:28 section; aa5 - Immunization history:: Adult Immunizations unknown. - Infectious Disease History:: Denies. - Social history:: Smoking status: Patient reports the use of cigarette tobacco products. ROS: 16:28 Constitutional: As per HPI kb Exam: 16:28 Constitutional: This is a well developed, well nourished patient who is awake, alert, kb and in no acute distress. Head/Face: Normocephalic, atraumatic. ENT: Moist Mucous membranes Cardiovascular: Regular rate Respiratory: Respirations even and unlabored. No increased work of breathing. Talking in full sentences Abdomen/GI: Soft, non-tender. No distention Skin: Warm, dry with normal turgor. Normal color. MS/ Extremity: Pulses equal, no cyanosis. Neurovascular intact. Full, normal range of motion. Neuro: Awake and alert, GCS 15, oriented to person, place, time, and situation. 17:13 ECG was reviewed by the Attending Physician. kb Vital Signs: 16:28 BP 176 / 101; Pulse 77; Resp 18 S; Temp 98.3(O); Pulse Ox 97% on R/A; Weight 99.79 kg aa5 (R); Height 5 ft. 3 in. ; Pain 10/10; 17:25 BP 156 / 91; Pulse 64; Resp 17; Pulse Ox 97% on R/A; dd2 16:28 Body Mass Index 38.97 (99.79 kg, 160.02 cm) aa5 16:28 Pain Scale: Adult aa5 Alisson Coma Score: 17:25 Eye Response: spontaneous(4). Motor Response: obeys commands(6). Verbal Response: dd2 oriented(5). Total: 15. MDM: 16:23 Medical Screening Exam initiated kb 16:30 Differential Diagnosis: Bronchitis Influenza Asthma Exacerbation Viral Syndrome cp Pneumonia. 17:50 Data reviewed: vital signs, nurses notes. Transition of care: After a detail discussion kb of the patient's case, care is transferred to Josafat SORENSON 18:38 I considered the following discharge prescriptions or medication management in the cp emergency department Medications were administered in the Emergency Department. See MAR. 18:38 Independent interpretation of the following test(s) in the Emergency Department EKG: cp See my EKG interpretation above. Care significantly affected by the following chronic conditions: Hypertension, asthma. Counseling: I had a detailed discussion with the patient and/or guardian regarding the historical points, exam findings, and any diagnostic results supporting the discharge/admit diagnosis, lab results, radiology results, to return to the emergency department if symptoms worsen or persist or if there are any questions or concerns that arise at home. Response to treatment: the patient's symptoms have mildly improved after treatment, and as a result, I will discharge patient. 11/10 16:27 Order name: CBC with Diff; Complete Time: 17:45 kb 11/10 16:27 Order name: CMP; Complete Time: 18:34 kb 11/10 18:34 Interpretation: Normal except: CL 108; ALK 147. 11/10 16:27 Order name: Lipase; Complete Time: 18:34 kb 11/10 18:35 Interpretation: Reviewed. 11/10 16:27 Order name: Troponin HS; Complete Time: 18:34 kb 11/10 18:35 Interpretation: Reviewed. 11/10 16:27 Order name: XRAY Chest (1 view); Complete Time: 17:03 kb 11/10 16:27 Order name: EKG; Complete Time: 16:27 kb 11/10 16:27 Order name: IV Saline Lock; Complete Time: 17:26 kb 11/10 16:27 Order name: Labs collected and sent; Complete Time: 17:26 kb 11/10 16:27 Order name: Cardiac monitoring; Complete Time: 17:26 kb 11/10 16:27 Order name: EKG - Nurse/Tech; Complete Time: 17:26 kb 11/10 18:36 Order name: PO challenge; Complete Time: 19:01 cp EC:13 Rate is 64 beats/min. Rhythm is regular. QRS [place] is Normal. AL interval is normal at kb 166 msec. QRS interval is normal at 98 msec. QT interval is normal at 447 msec. Administered Medications: 17:30 Drug: TORadol - Ketorolac IVP 15 mg IVP once Route: IVP; Site: right antecubital; dd2 17:30 Drug: Ondansetron IVP 4 mg IVP once; over 2 minutes Route: IVP; Site: right antecubital;dd2 17:30 Drug: NS 0.9% IV 1000 ml IV at 1 bolus Per protocol; to be given as a bolus over 60 dd2 minutes Route: IV; Rate: 1 bolus; Site: right antecubital; Disposition Summary: 11/10/24 18:38 Discharge Ordered Notes: Location: Home cp Problem: new cp Symptoms: have improved cp Condition: Stable cp Diagnosis - Nausea with vomiting, unspecified cp - Cough cp Followup: cp - With: Private Physician - When: 2 - 3 days - Reason: Worsening of condition Discharge Instructions: - Discharge Summary Sheet cp - Nausea and Vomiting, Adult cp - Cough, Adult cp Forms: - Medication Reconciliation Form cp - Antibiotic Education cp - Prescription Opioid Use cp - Patient Portal Instructions cp - Leadership Thank You Letter cp - Work release form jb4 Prescriptions: - Bromfed DM 2-30-10 mg/5 mL Oral syrup - administer 10 milliliter ORAL route every 6-8 hours as needed for cold cp symptoms; 240 milliliter; Refills: 0, Product Selection Permitted - Zofran 4 mg Oral Tablet - take 1 tablet ORAL route every 12 hours As needed; 20 tablet; Refills: 0, cp Product Selection Permitted Addendum: 11/12/2024 09:07 Co-signature as Attending Physician, Mike Valentine MD I reviewed the patient's care r n provided by the Advanced Practice Provider and agree with the diagnosis and treatment plan. Signatures: Dispatcher [employer] Caterina Henao, EXPERIMENTAL PHYSICIST-C EXPERIMENTAL PHYSICIST-Ckb Mike Valentine MD MD rn Calderon, Audri, RN RN aa5 Josafat Simms PA PA cp DAVIS, DIANA, RN RN dd2 Corrections: (The following items were deleted from the chart) 11/10 16:28 16:28 Allergies: Aspirin; aa5 aa5
[2024-11-10 19:59] VITALS: TEMP 98.3; O2SAT 97
[2024-11-10 20:05] VITALS: BP 156/91
--- NOTE | 2024-11-11 11:57 | EKG ---
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
== END 2024-11-10 19:40 | disposition home or self-care (01) ==
LOC: ER 16:19
DX: R11.2 Nausea with vomiting, unspecified (principal); R05.9 Cough, unspecified; R07.9 Chest pain, unspecified; Z72.0 Tobacco use
CPT/HCPCS: 93005; 85025; 36415; 84484; 83690; 80053; 71045; 96375; 96374; 99285; J2405; J7030